=== PATIENT | male | born 1960 | race African-American/Black ===

== ENCOUNTER 2016-10-26 02:27 | Emergency (ER) | payer OTHER ==
[~2016-10-26] VITALS: Ht 180.3 cm; Wt 88.5 kg
[~2016-10-26 02:27] MED LIST: ACET-704 PO; AMOX500C PO; AMOX875T PO; CLOP75TA27 PO; CYCL10TA2 PO; HYDR-971 PO; LOSA1TAB17 PO; PENI500T PO; SIMV10TA PO; TRAM-29 PO; blood pressure
[2016-10-26 02:37] VITALS: BP 132/85
--- NOTE | 2016-10-26 02:50 | PHYS DOC ---
Past Medical History Past Medical History: CVA, High Cholesterol, Hypertension, Stroke Past Surgical History: No Surgical History Alcohol Use: None Drug Use: None Adult General Chief Complaint Chief Complaint: DENTAL PROBLEM HPI HPI Patient is a 56 year old male who presents with months of left lower dental pain and right neck pain. States these occurred independently of each other, but are both present. Has dental pain that he has seen a dentist and taken amoxicillin and norco without improvement. States the dentist will not take the tooth out so he came here for another opinion. He notes right lateral neck pain only when he looks right, achy, shooting. Denies injury, trauma, dyspnea, difficulty swallowing, speech changes, headache, vision changes, numbness, tingling, weakness, nausea or vomiting, fever or chills. Review of Systems Review of Systems Constitutional: Denies fever or chills [] Eyes: Denies change in visual acuity, redness, or eye pain [] HENT: Denies nasal congestion or sore throat [] Respiratory: Denies cough or shortness of breath [] Cardiovascular: No additional information not addressed in HPI [] GI: Denies abdominal pain, nausea, vomiting, bloody stools or diarrhea [] : Denies dysuria or hematuria [] Musculoskeletal: Denies back pain or joint pain [] Integument: Denies rash or skin lesions [] Neurologic: Denies headache, focal weakness or sensory changes [] Endocrine: Denies polyuria or polydipsia [] Allergies Allergies Allergies Coded Allergies Type Severity Reaction Last Updated Verified aspirin Allergy Intermediate Palpitations 05/12/14 Yes Physical Exam Physical Exam Constitutional: Well developed, well nourished, no acute distress, non-toxic appearance. [] HENT: Normocephalic, atraumatic, bilateral external ears normal, oropharynx moist, no oral exudates, nose normal. Multiple dental caries present. No gumline tenderness, swelling or discoloration; No stridor, change of voice, tongue swelling, trismus, or drooling; Uvula is midline and floor is nontender[] Eyes: PERRLA, EOMI, conjunctiva normal, no discharge. [] Neck: Normal range of motion, no midline spinal tenderness, supple. Has slight right paraspinal muscle tenderness [] Cardiovascular:Heart rate regular rhythm [] Lungs & Thorax: Bilateral breath sounds clear to auscultation [] Abdomen: Bowel sounds normal, soft, no tenderness. [] Skin: Warm, dry, no erythema, no rash. [] Back: Normal ROM. [] Extremities: No tenderness, ROM intact. [] Neurologic: Alert and oriented X 3, normal motor function, normal sensory function, no focal deficits noted. [] Psychologic: Affect normal, judgement normal, mood normal. [] Current Patient Data Vital Signs Vital Signs Date Time Temp Pulse Resp B/P Pulse Ox O2 Delivery O2 Flow Rate FiO2 10/26/16 02:37 98.4 91 20 96 Room Air 98.4 Course & Med Decision Making Course & Med Decision Making Discussed management of MSK neck pain. Discussed he needs to see a dentist for definitive management of dental pain. Offered [facility] referral as he has difficulty with his dentist. Provided dental resources as well. Return precautions given. He understands plan. Dragon Disclaimer Dragon Disclaimer This electronic medical record was generated, in whole or in part, using a voice recognition dictation system. Departure Departure Impression: Primary Impression: Dentalgia Additional Impressions: Dental caries Chronic neck pain Disposition: 01 HOME, SELF-CARE Condition: STABLE Referrals: RAMSEY WLILIAMSON MD (PCP) SHIRIN GAINES Jr DDS Patient Instructions: Dental Pain, [id number] Additional Instructions: Take Tylenol or ibuprofen as needed for pain. Follow-up with your dentist and your primary care doctor. Return for any concerns. Problem Qualifiers Fely AYALA MD Oct 26, 2016 02:50
== END 2016-10-26 03:10 | disposition home or self-care (01) ==
LOC: ER 02:27
DX: K08.89 Other specified disorders of teeth and supporting structures (principal); K02.9 Dental caries, unspecified; G89.29 Other chronic pain; M54.2 Cervicalgia; E78.00 Pure hypercholesterolemia, unspecified; I10 Essential (primary) hypertension; Z86.73 Personal history of transient ischemic attack (TIA), and cerebral infarction without residual deficits; Z88.6 Allergy status to analgesic agent
CPT/HCPCS: 99281